=== PATIENT | female | born 1970 | race Caucasian/White ===

== ENCOUNTER 2019-07-14 19:57 | Outpatient (REF) | payer SELFPAY ==
[2019-07-14 20:29] LABS: Anion Gap 17.1 (5-19); Blood Urea Nitrogen 11 mg/dL (6-20); Calcium 9.6 mg/dL (8.5-10.5); Carbon Dioxide 23 mmol/L (22-29); Chloride 102 mmol/L (98-107); Chol HDL Ratio 3.44 mg/dL (0.0-4.40); Cholesterol 203 mg/dL (0-200); Glomerular Filtration Rate 89.7 mL/min (90-130); Glucose 104 mg/dL (65-115); HDL Cholesterol 59 mg/dL (60-100); LDL Cholesterol Calculated 115 mg/dL (50-129); LDL HDL Ratio 1.95 RATIO (0.00-3.22); Osmolality Calculated 282 mOsm/kg (285-295); Potassium 4.1 mmol/L (3.5-5.1); Sodium 138 mmol/L (136-145); Triglycerides 143 mg/dL (0-150)
[2019-07-14 20:33] LABS: Estmated Average Glucose 151; Hemoglobin A1C 6.9 % (4.0-6.0)
== END 2019-07-14 19:58 | disposition home or self-care (01) ==
LOC: LAB 19:57
PROVIDERS: Visit Provider General Practice
DX: Z01.89 Encounter for other specified special examinations (principal)
CPT/HCPCS: 80048; 80061; 83036

== ENCOUNTER 2023-05-01 07:54 | Oncology outpatient (recurring) (ONCR) | payer SELFPAY | END 2023-05-31 23:59 | disposition home or self-care (01) | PROVIDERS: PCP Nurse Practitioner Family; Visit Provider Nurse Practitioner Family | DX: Z84.89 Family history of other specified conditions (principal) | CPT/HCPCS: 36415 ==

== ENCOUNTER → 2023-08-03 14:34 | Outpatient (BNVA) | payer MEDICAID, SELFPAY | PROVIDERS: PCP Nurse Practitioner Family; Visit Provider Surgery | DX: K21.9 Gastro-esophageal reflux disease without esophagitis (principal); R11.2 Nausea with vomiting, unspecified; R10.13 Epigastric pain; R19.5 Other fecal abnormalities; R19.7 Diarrhea, unspecified | CPT/HCPCS: 99204 ==

== ENCOUNTER 2023-09-16 07:23 | Day surgery (SDC) | payer MEDICAID, SELFPAY ==
[2023-09-16 07:52] VITALS: BP 142/100; PULSE 90; RESP 16; TEMP 36.6; O2SAT 97; BMI 39.8
--- NOTE | 2023-09-16 07:55 | P.ANESASSM_ITS ---
Pre-Anesthetic Assessment Height/Weight: Height 1.6 m Operation Date: 09/16/23 08:30 Proposed Procedures p 27834 egd, 15720 COlon G0121,K21.9,R10.13, R19.5,r19.7(Not Applicable) - Lamine Yoon DO s Colonoscopy(Not Applicable) - Lamine Yoon DO Was Beta Fernando taken within 24 hours: N/A Was Clonidine taken within 24 hours: N/A Social Tobacco 1 pack(s) per day smokes weed daily, last cigarette last night Exam alert, oriented x 3, clear to auscultation bilaterally and regular rate & rhythm Airway Submandibular: within normal limits Cervical ROM: within normal limits Mallampati: Class II History/ROS No significant history except as noted and No significant complaints Pulmonary smoker CV/HEM Hypertension None reported Hepatic None reported GI Gastroesophageal Reflux Disease taking ozempic, last 2 weeks ago, feels full all the time but not this morning Metabolic Diabetes Mellitus and Morbid Obesity [facility] [place] None reported Neuropsych Anxiety Anesthetic Plan ASA status: 3 Anesthesia: Anesthesia Evaluation and MAC Risk of > 500 ml blood loss (7ml/kg in children): Yes, adequate IV access and fluids planned Medications/Allergies Home Medications Medication Instructions Recorded Confirmed Last Taken Type lisinopril 20 mg tablet 20 mg PO DAILY 08/03/23 09/14/23 09/14/23 History pantoprazole 40 mg tablet,delayed 40 mg PO BID 14 days #28 tabs 08/03/23 09/14/23 09/14/23 Rx release (Protonix) semaglutide 0.25 mg or 0.5 mg (2 0.25 mg SUBCUT Q7D 08/03/23 09/14/23 09/03/23 History mg/1.5 mL) subcutaneous pen injector (Ozempic) simvastatin 20 mg tablet 20 mg PO DAILY 08/03/23 09/14/23 09/14/23 History venlafaxine 75 mg tablet 75 mg PO DAILY 08/03/23 09/14/23 09/14/23 History aspirin 81 mg tablet,delayed 81 mg PO DAILY 09/14/23 09/14/23 09/13/23 History release Allergies Allergy/AdvReac Type Severity Reaction Status Date / Time No Known Allergies Allergy Unverified 08/03/23 14:56 [facility] Anesthesia Social History Smoking and tobacco/nicotine status: current every day tobacco/nicotine user cigarettes Packs smoked per day: 0.5 Years cigarettes smoked: 30 Data Anesthesia Cardiac Studies: No Data to Display
[2023-09-16 08:12] LABS: OR HCG Qualitative Urine Negative (Negative)
[2023-09-16 08:16] LABS: Glucose Point of Care 233 mg/dL (70-110)
[2023-09-16] MEDS: sodium chloride 0.9% 1,000 ML 30 ML IV (08:19)
--- NOTE | 2023-09-16 08:47 | PM.HP ---
Providers/Chief Complaint Primary Care Provider: Bertha Spence Chief Complaint: K21.9 History of Present Illness Genoveva Ley is a 53 year old female Review of Systems General: Reports: 10 or more systems reviewed and unremarkable except in HPI and below Medications/Allergies Home Medications Medication Instructions Recorded Confirmed Last Taken Type lisinopril 20 mg tablet 20 mg PO DAILY 08/03/23 09/16/23 09/14/23 History pantoprazole 40 mg tablet,delayed 40 mg PO BID 14 days #28 tabs 08/03/23 09/16/23 09/14/23 Rx release (Protonix) semaglutide 0.25 mg or 0.5 mg (2 0.5 mg SUBCUT Q7D 08/03/23 09/16/23 09/03/23 History mg/1.5 mL) subcutaneous pen injector (Ozempic) simvastatin 20 mg tablet 20 mg PO DAILY 08/03/23 09/16/23 09/14/23 History venlafaxine 75 mg tablet 75 mg PO DAILY 08/03/23 09/16/23 09/14/23 History aspirin 81 mg tablet,delayed 81 mg PO DAILY 09/14/23 09/16/23 09/13/23 History release garlic 200 mg tablet 200 mg PO DAILY 09/16/23 09/16/23 09/14/23 History omega-3 fatty acids 1,000 mg PO DAILY 09/16/23 09/16/23 09/14/23 History Allergies Allergy/AdvReac Type Severity Reaction Status Date / Time amoxicillin Allergy ALGY-Rash Verified 09/16/23 08:09 PFSH Acute PFSH: Social History Smoking and tobacco/nicotine status: current every day tobacco/nicotine user cigarettes Packs smoked per day: 0.5 Years cigarettes smoked: 30 Vitals/I&O/Wt Last Vital Signs Temp 97.8 F 09/16/23 07:52 Pulse 90 09/16/23 07:52 Resp 16 09/16/23 07:52 BP 142/100 09/16/23 07:52 Pulse Ox 97 09/16/23 07:52 O2 Del Method Room Air 09/16/23 07:52 Weight last 48 hrs Weight 225 lb A&P Assessment and plan (1) GERD (gastroesophageal reflux disease): (2) Positive colorectal cancer screening using Cologuard test: Plan EGD and colonoscopy Attestations Medical Necessity Statement*: Home Coding Level of Care Code Acute Code for Chg Fwd Diagnoses GERD (gastroesophageal reflux disease) K21.9 Positive colorectal cancer screening using Cologuard test R19.5
[2023-09-16 09:15] VITALS: BP 118/77; PULSE 96; RESP 14; TEMP 36.1; O2SAT 97
[2023-09-16 09:30] VITALS: BP 131/82; PULSE 86; RESP 16; O2SAT 97
[2023-09-16 11:19] LABS: C.Diff PCR (Lab) NEGATIVE (Negative)
--- NOTE | 2023-09-16 14:04 | ANE.PACU2 ---
Inpatient post-anesthesia follow up: Vital signs: Temperature 97 F Pulse Rate 86 Respiratory Rate 16 Blood Pressure 131/82 Pulse Oximetry 97 Oxygen Delivery Me thod Room Air Oxygen Flow Rate Fraction of Inspir ed Oxygen Hydration adequate: Yes Nausea and vomiting: No Mental status: Baseline Additional Comments: no known anesthetic complications noted
== END 2023-09-16 09:48 | disposition home or self-care (01) ==
PROVIDERS: Anesthesiology; PCP Nurse Practitioner Family; Visit Provider Surgery
PROC: 0DJ08ZZ Inspection of Upper Intestinal Tract, Via Natural or Artificial Opening Endoscopic (ICD-10-PCS; CPT 43235; principal; 2023-09-16 08:30)
PROC: 0DJD8ZZ Inspection of Lower Intestinal Tract, Via Natural or Artificial Opening Endoscopic (ICD-10-PCS; CPT 45378; 2023-09-16 08:30)
DX: R19.7 Diarrhea, unspecified (principal); R19.5 Other fecal abnormalities; K21.9 Gastro-esophageal reflux disease without esophagitis; D12.3 Benign neoplasm of transverse colon; Z79.82 Long term (current) use of aspirin; F17.210 Nicotine dependence, cigarettes, uncomplicated; R10.13 Epigastric pain; R11.2 Nausea with vomiting, unspecified; I10 Essential (primary) hypertension; E11.9 Type 2 diabetes mellitus without complications; E66.01 Morbid (severe) obesity due to excess calories; Z68.39 Body mass index [BMI] 39.0-39.9, adult; K64.8 Other hemorrhoids; K44.9 Diaphragmatic hernia without obstruction or gangrene; K22.2 Esophageal obstruction
CPT/HCPCS: 36416; 43239; 45380; 45385; 81025; 82274; 82962; 83630; 84703; 87045; 87177; 87209; 87427; 87449; 87493; 88305; J2704; J3010; J7030

== ENCOUNTER 2023-10-08 11:44 | Outpatient (CLI) | payer MEDICAID, SELFPAY ==
--- NOTE | 2023-10-08 11:45 | US_ITS ---
WS: [id number] RIGHT UPPER QUADRANT ULTRASOUND HISTORY: epigastric pain COMPARISON: None available. Liver: 21.1 cm in length. Poorly visualized liver. No mass identified. There are changes of hepatic s teatosis and hepatomegaly. Portal Vein: Normal hepatopetal flow with monophasic waveform. Gallbladder: Normally distended gallbladder with no stones or wall thickening. CBD: 0.3 cm Pancreas: Tail and head are not visualized. The body is normal. Right kidney: 9.7 cm in length. Normal size and echogenicity. No hydronephrosis or mass. Aorta and IVC: Unremarkable abdominal aorta and IVC. No ascites. US/US gall bladder [id number] IMPRESSION: 1. Normal gallbladder. 2. Hepatic steatosis and hepatomegaly.
== END 2023-10-08 11:45 | disposition home or self-care (01) ==
LOC: RAD 11:44
PROVIDERS: PCP Nurse Practitioner Family; Visit Provider Surgery
DX: K76.0 Fatty (change of) liver, not elsewhere classified (principal); R16.0 Hepatomegaly, not elsewhere classified; R10.13 Epigastric pain
CPT/HCPCS: 76705

== ENCOUNTER 2023-10-20 08:58 | Day surgery (SDC) | payer MEDICAID, SELFPAY ==
[2023-10-20] VITALS (8 sets, daily range): BP systolic 120–138; BP diastolic 64–103; PULSE 68–100; RESP 14–19; TEMP 36.4–36.7; O2SAT 93–98; BMI 38.9
--- NOTE | 2023-10-20 09:20 | W.PM.OPSUD ---
Surgery/Procedure H&P Update DATE OF PROCEDURE: October 20, 2023 DATE H&P PERFORMED: 10/05/23 H&P UPDATE INFORMATION: I have reviewed H&P completed within last 30 days, I have examined patient prior to procedure and No changes to prior documentation PLANNED PROCEDURE: Operation Date: 10/20/23 10:30 Proposed Procedures p Laparoscopic Cholecystectomy 67355, K80.50(Not Applicable) - Lamine Yoon, DO
[2023-10-20] MEDS: sodium chloride 0.9% 1,000 ML 30 ML IV (10:06)
--- NOTE | 2023-10-20 10:11 | P.ANESASSM_ITS ---
Pre-Anesthetic Assessment Height/Weight: Height 1.6 m Weight 99.79 kg Temp Pulse Resp BP Pulse Ox O2 Del Method 97.8 F 77 18 138/103 97 Room Air 10/20/23 09:25 10/20/23 09:25 10/20/23 09:25 10/20/23 09:25 10/20/23 09:25 10/20/23 09:26 Operation Date: 10/20/23 10:30 Proposed Procedures p Laparoscopic Cholecystectomy 12177, K80.50(Not Applicable) - Lamine Yoon DO Familial anesthetic complications: none Was Beta Fernando taken within 24 hours: N/A Was Clonidine taken within 24 hours: N/A Last intake: Intake Last Liquid Date 10/20/23 Last Liquid Time 01:00 Last Solid Date 10/19/23 Last Solid Time 22:00 Social Tobacco cannabis use 0100 last use. Exam alert, oriented x 3, clear to auscultation bilaterally and regular rate & rhythm Airway Submandibular: within normal limits Cervical ROM: within normal limits Mallampati: Class I Dentition: false (upper and lower plates) Pulmonary None reported CV/HEM Hypertension, Murmur (present since ) and Palpitations (anxiety) None reported Hepatic None reported GI Gastroesophageal Reflux Disease Metabolic Diabetes Mellitus, Hyperlipidemia and Morbid Obesity [facility] [place] None reported Neuropsych Anxiety and Depression Anesthetic Plan ASA status: 3 Anesthesia: General Other: Held Semiglutide 12 days Medications/Allergies Home Medications Medication Instructions Recorded Confirmed Last Taken Type lisinopril 20 mg tablet 20 mg PO DAILY 08/03/23 10/19/23 10/19/23 History semaglutide 0.25 mg or 0.5 mg (2 0.5 mg SUBCUT Q7D 08/03/23 10/19/23 10/08/23 History mg/1.5 mL) subcutaneous pen injector (Ozempic) simvastatin 20 mg tablet 20 mg PO DAILY 08/03/23 10/19/23 10/19/23 History venlafaxine 75 mg tablet 75 mg PO DAILY 08/03/23 10/19/23 10/19/23 History aspirin 81 mg tablet,delayed 81 mg PO DAILY 09/14/23 10/19/23 09/19/23 History release garlic 200 mg tablet 200 mg PO DAILY 09/16/23 10/19/23 10/19/23 History omega-3 fatty acids 1,000 mg PO DAILY 09/16/23 10/19/23 10/18/23 History Allergies Allergy/AdvReac Type Severity Reaction Status Date / Time amoxicillin Allergy ALGY-Rash Verified 10/05/23 09:42 Current Medications Generic Name Dose Route Start Last Admin Trade Name Freq PRN Reason Stop Dose Admin Sodium Chloride 1,000 mls @ 30 mls/hr 10/20/23 09:30 10/20/23 10:06 Sodium Chloride 0.9% IV 10/21/23 09:29 30 mls/hr .Q24H KASANDRA Administration PFSH Anesthesia Social History Smoking and tobacco/nicotine status: current every day tobacco/nicotine user cigarettes Packs smoked per day: 0.5 Years cigarettes smoked: 30 Female Reproductive History Date of last menstrual period: 10/19/23 Data Anesthesia Cardiac Studies: No Data to Display
[2023-10-20 10:23] LABS: OR HCG Qualitative Urine Negative (Negative)
[2023-10-20] MEDS: vancomycin 1,500 MG/300 ML PIGGYBACK 200 MG IV (10:23)
[2023-10-20] MEDS: lidocaine-epi 2% PF 1:200,000 20 mL SDV XX (10:43)
--- NOTE | 2023-10-20 11:08 | P.OP_ITS ---
Operative Report Date of procedure: October 20, 2023 Surgeon: Lamine Yoon DO Brief History: This very pleasant 53-year-old female who presented my office with abdominal pain. She is diagnosed with biliary colic. Laparoscopic cholecystectomy was indicated. The risks and benefits of the procedure, especially the fact that there is a 20 to 30% chance that cholecystectomy does not relieve all of her symptoms with this diagnosis, were explained to the patient. She is understanding of the risks and wished to proceed. Procedure: Preoperative diagnosis: Biliary colic Postoperative diagnosis: Same Procedure performed: Laparoscopic cholecystectomy Surgeon: Dr. Lamine Yoon DO Estimated blood loss: 5 mL Specimens: Gallbladder to pathology Complications: None apparent Description of procedure: Patient was wheeled into the operative room and placed on the OR table in a supine position. Abdomen was inspected prepped and draped in usual sterile fashion. Time-out was performed and all present were in agreement. A 15 blade scalp was used to make a stab incision in the left upper quadrant and intra- abdominal insufflation was achieved using a Veress needle. After localizing the tissue incisions were made and a 5 millimeter trocar was placed into the umbilicus as well as 2 in the right upper quadrant. A 12 millimeter trocar was placed in the epigastrium. Gallbladder was grasped and elevated. The triangle of Calot was carefully dissected using blunt dissection and electrocautery until the triangle of Calot clearly identified. The cystic duct was clipped prox imally and double clipped distally. The duct was then ligated proximally. The cystic artery was doubly clipped and ligated. The gallbladder was then removed from the liver bed using electrocautery. The gallbladder was removed from the abdomen using an Endo-Catch bag through the epigastric incision. The liver bed was inspected and no bleeding was seen. The abdomen was irrigated and suctioned. All ports removed. Skin was washed and dried. Incisions were closed with 4-0 Monocryl in a subcuticular interrupted fashion. Skin glue was applied. Patient tolerated the procedure well.
--- NOTE | 2023-10-20 12:50 | ANE.PACU2 ---
Inpatient post-anesthesia follow up: Airway intact: Yes Vital signs: Temperature 98.1 F Pulse Rate 70 Respiratory Rate 17 Blood Pressure 120/80 Pulse Oximetry 98 Oxygen Delivery Me thod Room Air Oxygen Flow Rate 2 Fraction of Inspir ed Oxygen Hydration adequate: Yes Nausea and vomiting: No Pain level: 1 Mental status: Baseline
[2023-10-21 05:42] LABS: Glucose Point of Care 152 mg/dL (70-110)
== END 2023-10-20 12:50 | disposition home or self-care (01) ==
PROVIDERS: PCP Nurse Practitioner Family; Visit Provider Surgery
PROC: 0FT44ZZ Resection of Gallbladder, Percutaneous Endoscopic Approach (ICD-10-PCS; CPT 47562; principal; 2023-10-20 10:30)
DX: K81.1 Chronic cholecystitis (principal)
CPT/HCPCS: 47562; 36416; 81025; 82962; 88304; J1100; J2250; J2405; J2704; J3010; J3370; J3490; J7030

== ENCOUNTER 2024-02-02 11:46 | Outpatient (CLI) | payer MEDICAID, SELFPAY ==
--- NOTE | 2024-02-02 11:51 | XRR_ITS ---
PROCEDURE INFORMATION: Exam: XR Lumbosacral Spine Exam date and time: 02/02/2024 11:58 AM Age: 54 years old Clinical indication: Low back pain; Patient HX: Hands and feet are going numb and pain radiating down to extremities; Additional info: Chronic neck pain/low back pain/peripheral neuropathy TECHNIQUE: Imaging protocol: Radiologic exam of the lumbosacral spine. Views: 4 or 5 views. COMPARISON: CR XR thoracic spine 2V [id number] 02/02/2024 11:58 AM FINDINGS: Bones/joints: Mild retrolisthesis L3-L4. Degenerative disc disease most prominently at L2-L3 and L3-L4. Diffuse facet arthropathy. No acute fracture. Soft tissues: Unremarkable. Organs: Clips in right upper quadrant likely from previous cholecystectomy. XR/XR lumbar spine min 4V [id number] IMPRESSION: No acute findings.
--- NOTE | 2024-02-02 11:51 | XRR_ITS ---
PROCEDURE INFORMATION: Exam: XR Thoracic Spine Exam date and time: 02/02/2024 11:58 AM Age: 54 years old Clinical indication: Pain in thoracic spine; Patient HX: Hands and feet are going numb and pain radiating down to extremities; Additional info: Chronic neck pain/chronic low back pain/peripheral neuropath TECHNIQUE: Imaging protocol: Radiologic exam of the thoracic spine. Views: 3 views. COMPARISON: CR XR cervical spine 3V* [id number] 02/02/2024 11:58 AM FINDINGS: Bones/joints: Alignment is normal. No fracture. Mild diffuse degenerative disc disease. Soft tissues: Unremarkable. XR/XR thoracic spine 2V [id number] IMPRESSION: No acute findings.
--- NOTE | 2024-02-02 11:51 | XRR_ITS ---
PROCEDURE INFORMATION: Exam: XR Cervical Spine Exam date and time: 02/02/2024 11:58 AM Age: 54 years old Clinical indication: Neck pain; Patient HX: Hands and feet are going numb and pain radiating down to extremities; Additional info: Chronic neck pain/low back pain/peripheral neuropathy TECHNIQUE: Imaging protocol: Radiologic exam of the cervical spine. Views: 2 or 3 views. COMPARISON: CR XR thoracic spine 2V [id number] 02/02/2024 11:58 AM FINDINGS: Bones/joints: There is normal alignment with reversal of lordosis. Degenerative disc disease seen at C5-C6, C6-C7, C7-T1. Mild diffuse facet arthropathy. No fracture. Soft tissues: Unremarkable. XR/XR cervical spine 3V* [id number] IMPRESSION: No acute findings.
== END 2024-02-02 11:47 | disposition home or self-care (01) ==
LOC: RAD 11:50
PROVIDERS: PCP Nurse Practitioner Family; Visit Provider Nurse Practitioner Family
DX: M51.36 Other intervertebral disc degeneration, lumbar region (principal); G60.9 Hereditary and idiopathic neuropathy, unspecified; M47.896 Other spondylosis, lumbar region; Z90.49 Acquired absence of other specified parts of digestive tract; M50.322 Other cervical disc degeneration at C5-C6 level; M50.223 Other cervical disc displacement at C6-C7 level; M51.34 Other intervertebral disc degeneration, thoracic region
CPT/HCPCS: 72040; 72070; 72110

== ENCOUNTER 2024-02-15 13:18 | Outpatient (CLI) | payer MEDICAID, SELFPAY ==
--- NOTE | 2024-02-15 13:26 | MM_ITS ---
WS: [id number] BILATERAL 3D TOMOSYNTHESIS DIGITAL SCREENING MAMMOGRAPHY WITH CAD CLINICAL INFORMATION: SCREENING HISTORY: Screening mammogram. No current complaints. COMPARISON: Baseline TECHNIQUE: Bilateral CC and MLO views. FINDINGS: Scattered fibroglandular densities bilaterally. No suspicious focal mass, asymmetry, calcifications, or architectural distortion. No evidence of malignancy. MM/MM scr BI tomosynthesis [id number] IMPRESSION: DENSITY: There are scattered areas of fibroglandular density. BI-RADS: 2 - Benign. FOLLOW UP: 1 Year Follow-up Recommend return to annual screening mammography.
== END 2024-02-15 13:19 | disposition home or self-care (01) ==
PROVIDERS: PCP Nurse Practitioner Family; Visit Provider Nurse Practitioner Family
DX: Z12.31 Encounter for screening mammogram for malignant neoplasm of breast (principal)
CPT/HCPCS: 77063; 77067

== ENCOUNTER 2024-02-26 12:21 | Emergency (ER) | payer MEDICAID, SELFPAY ==
[2024-02-26 12:44] VITALS: BP 177/75; PULSE 90; RESP 16; TEMP 36.6; O2SAT 97; BMI 40.3
--- NOTE | 2024-02-26 14:07 | ED_ITS ---
HPI - Back Pain/Injury 2 General: Chief Complaint: Back Pain/Injury Stated Complaint: Lower back pain Time Seen by Provider: 02/26/24 13:48 History of Present Illness: Patient presents to the ER complaining of back pain times roughly the last 6 days. Patient says it is in her flank area on both sides hurts to move. Patient denies any nausea vomiting dysuria frequency pain burning, patient has taken Tylenol ibuprofen [id number] muscle rubs with no relief. Patient did get a couple muscle relaxers that she had that did improve the pain. It does hurt to move. Patient does have a history of back problems and seeing a spine doctor but this is a little bit different. Patient is worried about kidney stones. Related Data Home Medications Medication Instructions Recorded Confirmed lisinopril 20 mg tablet 20 mg PO DAILY 08/03/23 02/26/24 simvastatin 20 mg tablet 20 mg PO DAILY 08/03/23 02/26/24 aspirin 81 mg tablet,delayed 81 mg PO DAILY 09/14/23 02/26/24 release dulaglutide 1.5 mg/0.5 mL 1.5 mg SUBCUT Q7D 02/26/24 02/26/24 [facility] Previous Rx's Medication Instructions Recorded orphenadrine citrate 100 mg 100 mg PO Q12H PRN Muscle 02/26/24 tablet,extended release spasm/pain #14 tabs Allergies Allergy/AdvReac Type Severity Reaction Status Date / Time amoxicillin Allergy ALGY-Rash Verified 11/02/23 13:20 Review of Systems 2 General: Reports: 10 or more systems reviewed and unremarkable except in HPI and below PFSH ED 2 PFSH: Surgical History History of laparoscopic cholecystectomy Social History Smoking and tobacco/nicotine status: current every day tobacco/nicotine user cigarettes Packs smoked per day: 0.5 Years cigarettes smoked: 30 Female Reproductive History: Date of last menstrual period: 02/24/24 Physical Exam 2 Const: COMMON NORMALS: no acute distress, average body habitus, patient oriented x3, no limitations, healthy appearing, alert and well nourished HENMT: COMMON NORMALS: normocephalic, atraumatic, hearing grossly normal bilaterally, external ears normal, Normal external nose present and moist oral mucous membranes HEAD & SCALP: normocephalic and atraumatic NOSE: Normal external nose present EXTERNAL EAR: Yes external ears normal Neck/C-Spine: COMMON NORMALS: full ROM, no lymphadenopathy, supple, no meningeal signs, no JVD and Thyroid normal THYROID: Thyroid normal Chest: COMMONS NORMALS: normal inspection of the chest and normal palpation of entire chest wall Resp: COMMON NORMALS: normal respiratory effort, No retractions, No use of accessory muscles and clear to auscultation bilaterally AUSCULTATION: clear to auscultation bilaterally Cardio: COMMON NORMALS: no JVD, regular rate, regular rhythm, S1 normal heart sound present, S2 normal heart sound present, No gallops present (Cardio), No clicks present (Cardio), No murmurs present (Cardio) and No rub (Cardio) R ATE: regular rate RHYTHM: regular rhythm HEART SOUNDS: S1 normal heart sound present and S2 normal heart sound present GI: COMMON NORMALS: Normal to inspection, nondistended, normoactive bowel sounds present, Soft to palpation, non-tender, No hepatosplenomegaly present and no masses PALPATION: Yes Soft to palpation and Yes No hepatosplenomegaly present Neuro: COMMON NORMALS: patient oriented x3 SENSORIUM/ORIENTATION: Yes alert MENINGEAL SIGNS: Yes no meningeal signs Course 2 Vital Signs: Vital signs: Vital Signs Temperature 97.8 F 02/26/24 12:44 Pulse Rate 90 02/26/24 12:44 Respiratory Rate 16 02/26/24 12:44 Blood Pressure 177/75 02/26/24 12:44 Pulse Oximetry 97 02/26/24 12:44 Oxygen Delivery Me thod Room Air 02/26/24 15:39 MDM - Back Pain/Injury Medical Decision Making Patient presented with low back pain, lab work was obtained as well as abdomen pelvis CT which essentially unremarkable. Is felt the patient has musculoskeletal pain. Patient be prescribed Norflex and sent back to her family care practitioner. Medical Records I reviewed the patient's medical records. Labs I reviewed the patient's lab results. 02/26/24 14:30 02/26/24 14:30 Radiology Impressions Abdomen/Pelvis CT 02/26/24 14:49 IMPRESSION: 1. No nephrolithiasis or obstructive uropathy. 2. 3.4 cm left and 3 cm right adnexal cysts. Further evaluation with prompt non-emergent ultrasound is recommended to characterize. (Reference: Markos) 3. Question slightly thickened jejunal loops in the left upper quadrant. Suspect mild enteritis. COMMENTS: Consistent with the [employer]'s Incidental Findings Committee white paper (J Am Darlin Radiol 2017): For any incidental adrenal lesion greater than or equal to 1 cm but less than or equal to 4 cm classified in this report as benign, likely benign, or containing fat (including classification as an adenoma or myelolipoma), no follow-up imaging is recommended per consensus recommendations based on imaging criteria. Further lab evaluation could be pursued if warranted based on clinical findings. REFERENCES: Markos et al. Management of Incidental Adnexal Findings on CT and MRI: A White Paper of the ACR Incidental Findings Committee, J Am Darlin Radiol. 2019;17(2):248-254. Laboratory Results WBC 11.00 10^3/uL (3.29-11.43) 02/26/24 14:30 RBC 4.77 10^6/uL (3.85-5.65) 02/26/24 14:30 Hgb 14.50 g/dL (11.27-16.99) 02/26/24 14:30 Hct 43.6 % (36-47) 02/26/24 14:30 MCV 91.4 fl (85-98) 02/26/24 14:30 MCH 30.4 pg (27-33) 02/26/24 14:30 MCHC 33.3 g/dL (30-55) 02/26/24 14:30 RDW 13.6 % (12.1-15.1) 02/26/24 14:30 Plt Count 299 10^3/cmm (157-399) 02/26/24 14:30 MPV 9.9 fL (7.4-10.4) 02/26/24 14:30 Neut % (Auto) 61.3 % 02/26/24 14:30 Lymph % (Auto) 30.0 % 02/26/24 14:30 Ell[place] % (Auto) 6.2 % 02/26/24 14:30 Eos % (Auto) 1.5 % 02/26/24 14:30 Baso % (Auto) 0.5 % 02/26/24 14:30 Neut # (Auto) 6.74 10^3/uL (1.8-7.7) 02/26/24 14:30 Lymph # (Auto) 3.3 10^3/uL (0.8-4.8) 02/26/24 14:30 Ellsworth # (Auto) 0.7 10^3/uL (0.2-0.9) 02/26/24 14:30 Eos # (Auto) 0.2 10^3/uL (0.0-0.8) 02/26/24 14:30 Baso # (Auto) 0.1 10^3/uL (0.0-0.1) 02/26/24 14:30 Nucleated RBC % (auto) 0 % 02/26/24 14:30 Nucleated RBCs # 0.0 /100WBC 02/26/24 14:30 Sodium 140 mmol/L (136-145) 02/26/24 14:30 Potassium 4.1 mmol/L (3.5-5.1) 02/26/24 14:30 Chloride 104 mmol/L (98-107) 02/26/24 14:30 Carbon Dioxide 24 mmol/L (22-29) 02/26/24 14:30 Anion Gap 16.1 (5-19) 02/26/24 14:30 BUN 12 mg/dL (6-20) 02/26/24 14:30 Creatinine 0.8 mg/dL (0.5-0.9) 02/26/24 14:30 GFR Calculation 75.3 mL/min (90-130) L 02/26/24 14:30 Glucose 182 mg/dL (65-115) H 02/26/24 14:30 Calculated Osmolality 294 mOsm/kg (285-295) 02/26/24 14:30 Calcium 8.6 mg/dL (8.5-10.5) 02/26/24 14:30 Total Bilirubin 0.2 mg/dL (0.15-1.2) 02/26/24 14:30 AST 23 U/L (0-32) 02/26/24 14:30 ALT 23 U/L (0-33) 02/26/24 14:30 Alkaline Phosphatase 66 U/L (35-105) 02/26/24 14:30 Total Protein 6.6 g/dL (6.6-8.7) 02/26/24 14:30 Albumin 4.0 g/dL (3.5-5.2) 02/26/24 14:30 Globulin 2.6 g/dL (1.3-4.6) 02/26/24 14:30 Urine Color Yellow (Yellow) 02/26/24 14:19 Urine Appearance Clear (CLEAR) 02/26/24 14:19 Urine pH 5.5 (5-7) 02/26/24 14:19 Ur Specific Hannah 1.022 (1.005-1.030) 02/26/24 14:19 Urine Protein Negative (Negative) 02/26/24 14:19 Urine Glucose (UA) Negative (Normal) 02/26/24 14:19 Urine Ketones Negative (Negative) 02/26/24 14:19 Urine Blood Trace (Negative) A 02/26/24 14:19 Urine Nitrate Negative (Negative) 02/26/24 14:19 Urine Bilirubin Negative (Negative) 02/26/24 14:19 Urine Urobilinogen 1.0 mg/dL (Negative) 02/26/24 14:19 Ur Leukocyte Esterase Negative (Negative) 02/26/24 14:19 Urine RBC 6-10 /hpf (0-2) 02/26/24 14:19 Urine WBC 0-5 /hpf (0-5) 02/26/24 14:19 Ur Squamous Epith Cells 0-5 /hpf (0-5) 02/26/24 14:19 Amorphous Sediment Not Reportable 02/26/24 14:19 Urine Bacteria None seen /hpf (NONE) 02/26/24 14:19 Hyaline Casts 1.65 /lpf 02/26/24 14:19 All radiology interpretation(s) finalized by discharge Discharge Plan Discharge Patient Disposition: Home Clinical Impression: Musculoskeletal back pain Condition: Stable Prescriptions: New orphenadrine citrate 100 mg tablet extended release 100 mg PO Q12H PRN (Reason: Muscle spasm/pain) Qty: 14 0RF No Action lisinopril 20 mg tablet 20 mg PO DAILY simvastatin 20 mg tablet 20 mg PO DAILY aspirin 81 mg Tablet,Delayed Release (Dr/Ec) 81 mg PO DAILY Trulicity 1.5 mg/0.5 mL pen injector 1.5 mg SUBCUT Q7D Discharge Orders: Discharge ED (Routine); Ordered 02/26/24 Ordered By: Kalpesh Heart Referrals: Bertha Spence, INCOME TAX ANALYST [Primary Care Provider] - 1 week Patient Instructions: Acute Low Back Pain (ED) Activity Restrictions/Additional Instructions: Thank you for choosing [facility] for your healthcare needs today. Please realize that you were seen in the emergency department and that we are providing you with an emergency medical screening exam and this may not be a complete and all exclusive of all testing and/or medical workup we may need to determine your element or severity of your illness. It is very important that you follow-up as instructed with your primary care provider or specialist for the additional evaluation and to discuss your medical treatment plan. You may return to the emergency department should you have concerns or if your condition changes or worsens in any way. Coding Level of Care Code ED Chuck Wagon Cook for Michaela Charles
[2024-02-26 14:36] LABS: Bilirubin Urine Negative (Negative); Blood Urine Trace (Negative); Glucose Urine UA Negative (Normal); Ketones Urine Negative (Negative); Leukocyte Esterase Urine Negative (Negative); Nitrate Urine Negative (Negative); Protein Urine Negative (Negative); Specific Gravity, Urine 1.022 (1.005-1.030); Urine Appearance Clear (CLEAR); Urine Color Yellow (Yellow); pH Urine 5.5 (5-7)
[2024-02-26 14:39] LABS: Basophils # 0.1 10^3/uL (0.0-0.1); Basophils % 0.5 %; Eosinophils # 0.2 10^3/uL (0.0-0.8); Eosinophils % 1.5 %; Hematocrit 43.6 % (36-47); Lymphocytes # 3.3 10^3/uL (0.8-4.8); Mean Corpuscular HGB Conc 33.3 g/dL (30-55); Mean Corpuscular Hemoglobin 30.4 pg (27-33); Mean Corpuscular Volume 91.4 fl (85-98); Mean Platelet Volume 9.9 fL (7.4-10.4); Monocytes # 0.7 10^3/uL (0.2-0.9); Monocytes % 6.2 %; Neutrophils # 6.74 10^3/uL (1.8-7.7); Neutrophils % 61.3 %; Nucleated Red Blood Cells % 0 %; Platelet Count 299 10^3/cmm (157-399); Red Blood Count 4.77 10^6/uL (3.85-5.65); Red Cell Distribution Width 13.6 % (12.1-15.1)
[2024-02-26 14:40] LABS: Add Urine Microscopic? YES; Bacteria Urine None Seen /hpf; Hyaline Casts Urine 1.65 /lpf; Squamous Epithelial Cell Urine 0-5 /hpf (0-5); WBC Urine 0-5 /hpf (0-5)
--- NOTE | 2024-02-26 14:49 | CTR_ITS ---
PROCEDURE INFORMATION: Exam: CT Abdomen And Pelvis Without Contrast Exam date and time: 02/26/2024 3:06 PM Age: 54 years old Clinical indication: Abdominal pain; Flank; Left; Additional info: Flank pain TECHNIQUE: Imaging protocol: Computed tomography of the abdomen and pelvis without contrast. Radiation optimization: All CT scans at this facility use at least one of these dose optimization techniques: automated exposure control; mA and/or kV adjustment per patient size (includes targeted exams where dose is matched to clinical indication); or iterative reconstruction. COMPARISON: CR XR lumbar spine min 4V [id number] 02/02/2024 11:58 AM RADIATION DOSE METRICS: Total DLP (mGy-cm): 1067.39 FINDINGS: Liver: Liver is enlarged measuring 21 cm. Diffuse decrease in hepatic parenchymal density, consistent with fatty infiltration. Gallbladder and biliary ducts: Cholecystectomy. Pancreas: Normal. No ductal dilation. Spleen: Normal. No splenomegaly. Adrenal glands: 18 mm nodule in the right adrenal gland with HU less than 10, consistent with a benign adrenal adenoma. 13 mm nodule in the left adrenal gland with HU less than 10, consistent with a benign adrenal adenoma. Kidneys and ureters: Normal. No hydronephrosis. Stomach and bowel: Diffuse colonic diverticulosis. Question slightly thickened jejunal loops in the left upper quadrant. Appendix: No evidence of appendicitis. Intraperitoneal space: No free fluid, fluid collections, or pneumoperitoneum. Vasculature: Unremarkable. No abdominal aortic aneurysm. Lymph nodes: No retroperitoneal, pelvic, or mesenteric adenopathy. Urinary bladder: Bladder is decompressed and difficult to evaluate. Reproductive: 3.4 cm left and 3 cm right adnexal cysts. Tampon in the vaginal canal. 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 There is developmental deformity of the anterior/superior vertebral body of L4, consistent with a benign limbus vertebra. Mild multilevel degenerative changes of the spine. Soft tissues: There is a fat-containing umbilical hernia. Subcutaneous air focus in the ventral abdomen, likely related to recent injection. CT/CT kidney stone [id number] IMPRESSION: 1. No nephrolithiasis or obstructive uropathy. 2. 3.4 cm left and 3 cm right adnexal cysts. Further evaluation with prompt non-emergent ultrasound is recommended to characterize. (Reference: Burrows) 3. Question slightly thickened jejunal loops in the left upper quadrant. Suspect mild enteritis. COMMENTS: Consistent with the [employer]'s Incidental Findings Committee white paper (J Am Darlin Radiol 2017): For any incidental adrenal lesion greater than or equal to 1 cm but less than or equal to 4 cm classified in this report as benign, likely benign, or containing fat (including classification as an adenoma or myelolipoma), no follow-up imaging is recommended per consensus recommendations based on imaging criteria. Further lab evaluation could be pursued if warranted based on clinical findings. REFERENCES: Markos et al. Management of Incidental Adnexal Findings on CT and MRI: A White Paper of the ACR Incidental Findings Committee, J Am Darlin Radiol. 2019;17(2):248-254.
[2024-02-26 14:57] LABS: Alanine Aminotransferase 23 U/L (0-33); Alkaline Phosphatase 66 U/L (35-105); Anion Gap 16.1 (5-19); Aspartate Amino Transferase 23 U/L (0-32); Blood Urea Nitrogen 12 mg/dL (6-20); Calcium 8.6 mg/dL (8.5-10.5); Carbon Dioxide 24 mmol/L (22-29); Chloride 104 mmol/L (98-107); Creatinine Clr Calc Pharmacy 94.4547; Globulin 2.6 g/dL (1.3-4.6); Glomerular Filtration Rate 75.3 mL/min (90-130); Glucose 182 mg/dL (65-115); Osmolality Calculated 294 mOsm/kg (285-295); Potassium 4.1 mmol/L (3.5-5.1); Sodium 140 mmol/L (136-145); Total Bilirubin 0.2 mg/dL (0.15-1.2); Total Protein 6.6 g/dL (6.6-8.7)
== END 2024-02-26 17:04 | disposition home or self-care (01) ==
PROVIDERS: Emergency Provider Emergency Medicine; PCP Nurse Practitioner Family
DX: M54.50 Low back pain, unspecified (principal); Z79.82 Long term (current) use of aspirin; Z79.85 Long-term (current) use of injectable non-insulin antidiabetic drugs; F17.210 Nicotine dependence, cigarettes, uncomplicated
CPT/HCPCS: 36415; 74176; 80053; 81001; 85025; 99284

== ENCOUNTER 2024-04-26 08:55 | Outpatient (CLI) | payer MEDICAID, SELFPAY ==
--- NOTE | 2024-04-26 08:57 | USR_ITS ---
PROCEDURE INFORMATION: Exam: US Pelvis, Complete, Non-Obstetric Exam date and time: 04/26/2024 9:13 AM Age: 54 years old Clinical indication: Other: Adnexal mass TECHNIQUE: Imaging protocol: Transabdominal pelvic nonobstetric ultrasound. Complete exam. Real time ultrasound with image documentation. COMPARISON: CT kidney stone [id number] 02/26/2024 3:06 PM FINDINGS: Uterus: Uterus is normal. Endometrial stripe is normal. Nabothian cysts noted. Right ovary/adnexa: Obscured by overlying bowel gas. Left ovary/adnexa: Ovary is normal. No mass. Normal blood flow. 1.7 cm cyst noted. Intraperitoneal space: No intraperitoneal fluid. Urinary bladder: Normal. US/US pelv w/transvag [id number] IMPRESSION: No acute findings.
== END 2024-04-26 08:56 | disposition home or self-care (01) ==
LOC: RAD 08:56
PROVIDERS: PCP Nurse Practitioner Family; Visit Provider Nurse Practitioner Family
DX: R19.09 Other intra-abdominal and pelvic swelling, mass and lump (principal)
CPT/HCPCS: 76830; 76856

== ENCOUNTER → 2024-08-08 14:37 | Outpatient (BNVA) | payer SELFPAY | PROVIDERS: PCP Nurse Practitioner Family; Visit Provider Specialist | DX: G56.03 Carpal tunnel syndrome, bilateral upper limbs (principal); M06.4 Inflammatory polyarthropathy | CPT/HCPCS: 36415; 73130; 80053; 84550; 85025; 85651; 86140; 86200; 86225; 86235; 86431 ==